=== PATIENT | female | born 1955 | race Caucasian/White ===

== ENCOUNTER 2020-05-04 08:06 | Day surgery (SDC) | payer OTHER, SELFPAY ==
[~2020-05-04] VITALS: Ht 154.9 cm; Wt 81.6 kg
[2020-05-04] MEDS ORDERED: fentaNYL citrate 0.05 MG/ML VIAL ONE (09:05)
[2020-05-04] MEDS ORDERED: diphenhydrAMINE 50 MG/ML VIAL ONE (09:05)
[2020-05-04] MEDS ORDERED: LIDOCAINE 2% 100 MG/5 ML UJET TP ONE ×2 (09:05→11:05)
[2020-05-04] MEDS ORDERED: MIDAZOLAM 5 MG/5 ML VIAL ONE (09:05)
[2020-05-04] MEDS ORDERED: MIDAZOLAM 2 MG/2 ML VIAL IVP ONE (11:05)
[2020-05-04] MEDS ORDERED: fentaNYL citrate 0.05 MG/ML VIAL IVP ONE (11:05)
== END 2020-05-04 11:21 | disposition home or self-care (01) ==
LOC: MOR 08:06 → MFCC 08:06 → MOR 11:21
PROVIDERS: ATTEND Internal Medicine Gastroenterology
DX: R19.5 Other fecal abnormalities (principal); K63.5 Polyp of colon; Z98.82 Breast implant status; Z90.11 Acquired absence of right breast and nipple; Z79.84 Long term (current) use of oral hypoglycemic drugs; Z79.899 Other long term (current) drug therapy; Z20.828 Contact with and (suspected) exposure to other viral communicable diseases
CPT/HCPCS: 45385; 88305; J2250; J3010; U0003; J1200

== ENCOUNTER 2020-07-06 10:50 | Day surgery (SDC) | payer OTHER, SELFPAY ==
[~2020-07-06] VITALS: Ht 154.9 cm; Wt 81.6 kg
[2020-07-06] MEDS ORDERED: diphenhydrAMINE 50 MG/ML VIAL ONE (11:30)
[2020-07-06] MEDS ORDERED: LIDOCAINE 2% 100 MG/5 ML UJET TP ONE (11:30)
[2020-07-06] MEDS ORDERED: fentaNYL citrate 0.05 MG/ML VIAL ONE (11:30)
[2020-07-06] MEDS ORDERED: MIDAZOLAM 5 MG/5 ML VIAL ONE (11:30)
[2020-07-06] MEDS ORDERED: fentaNYL citrate 0.05 MG/ML VIAL IVP ONE (13:00)
[2020-07-06] MEDS ORDERED: MIDAZOLAM 2 MG/2 ML VIAL IVP ONE (13:00)
== END 2020-07-06 13:10 | disposition home or self-care (01) ==
LOC: MMU 10:50 → MDS 10:50
PROVIDERS: ATTEND Internal Medicine Gastroenterology
DX: R19.5 Other fecal abnormalities (principal); K63.5 Polyp of colon; E11.9 Type 2 diabetes mellitus without complications; E78.5 Hyperlipidemia, unspecified; I10 Essential (primary) hypertension; F32.9 Major depressive disorder, single episode, unspecified; Z79.4 Long term (current) use of insulin; Z79.899 Other long term (current) drug therapy; Z90.11 Acquired absence of right breast and nipple; Z85.3 Personal history of malignant neoplasm of breast; Z20.828 Contact with and (suspected) exposure to other viral communicable diseases
CPT/HCPCS: 45380; 45385; 87426; 88305; J2250; J3010; J7030; U0003; J1200

== ENCOUNTER 2022-07-04 09:55 | Day surgery (SDC) | payer OTHER ==
[~2022-07-04] VITALS: Ht 154.9 cm; Wt 81.6 kg
[2022-07-04] MEDS ORDERED: fentaNYL citrate 0.05 MG/ML VIAL ONE (10:17)
[2022-07-04] MEDS ORDERED: MIDAZOLAM 5 MG/5 ML VIAL ONE (10:17)
[2022-07-04] MEDS ORDERED: diphenhydrAMINE 50 MG/ML VIAL ONE (10:17)
[2022-07-04] MEDS ORDERED: LIDOCAINE 2% 100 MG/5 ML UJET TP ONE (10:18)
[2022-07-04] MEDS ORDERED: fentaNYL citrate 0.05 MG/ML VIAL IVP ONE (11:45)
[2022-07-04] MEDS ORDERED: MIDAZOLAM 5 MG/5 ML VIAL IV ONE (11:45)
[2022-07-04] MEDS ORDERED: diphenhydrAMINE 50 MG/ML VIAL IVP ONE (11:45)
== END 2022-07-04 14:23 | disposition home or self-care (01) ==
LOC: MDS 09:55 → MMU 09:56 → MDS 14:23
PROVIDERS: ATTEND Internal Medicine Gastroenterology
DX: Z09 Encounter for follow-up examination after completed treatment for conditions other than malignant neoplasm (principal); D12.3 Benign neoplasm of transverse colon; I10 Essential (primary) hypertension; E11.9 Type 2 diabetes mellitus without complications; E78.5 Hyperlipidemia, unspecified; K57.30 Diverticulosis of large intestine without perforation or abscess without bleeding; Z90.49 Acquired absence of other specified parts of digestive tract; Z98.890 Other specified postprocedural states; Z86.010 Personal history of colon polyps; Z85.3 Personal history of malignant neoplasm of breast; Z79.899 Other long term (current) drug therapy; Z20.822 Contact with and (suspected) exposure to COVID-19
CPT/HCPCS: 45380; 45385; 87426; 88305; J1200; J2250; J3010